=== PATIENT | male | born 1980 | race Caucasian/White ===

== ENCOUNTER 2017-02-23 18:44 | Emergency (ER) | payer SELFPAY ==
[~2017-02-23] VITALS: Ht 170.2 cm; Wt 113.6 kg
[~2017-02-23 18:44] MED LIST: ACETAMINOPHEN-O1 TAB PO; AMBIEN10 MG PO; AMERINET CHO25 MG/ML PO; MEDI-FIRST ASP325 MG PO; PENICILLIN-VK500 MG PO; PEPCID40 M1 PO; PERCOCET 325 MG1 TA2 PO; PRADAXA75 MG PO; SOTALOL HYDROC120 MG PO
[2017-02-23] MEDS ORDERED: AZITHROMYCIN 250MG PO (21:57)
[2017-02-23 23:35] VITALS: BP 120/84
== END 2017-02-23 23:35 | disposition home or self-care (01) ==
LOC: ED 18:44
DX: J18.9 Pneumonia, unspecified organism (principal); F17.210 Nicotine dependence, cigarettes, uncomplicated; K76.0 Fatty (change of) liver, not elsewhere classified
CPT/HCPCS: J1885; J7030; Q9967

== ENCOUNTER → 2019-07-18 | Outpatient (CLI) | payer SELFPAY ==
[~2019-07-18] MED LIST changes: +AZITHROMYCIN 250MG PO
[2019-07-18 16:08] LABS: EOS # 0.1 (0.04-0.40); EOS % 1.8 % (0.0-4.0); HEMATOCRIT 41.8 % (42.0-52.0); HEMOGLOBIN 13.6 g/dL (13.5-18.0); MEAN CELL VOLUME 93 fl (78-100); MEAN CORPUSCULAR HEMOGLOBIN 30 pg (27-31); MEAN CORPUSCULAR HGB CONC 33 g/dL (33-37); MEAN PLATELET VOLUME 9.8 fl (7.4-10.4); MONO # 0.6 (0.20-0.80); NEU # 3.7 (1.40-6.50); PLATELET COUNT 285 K/mm3 (130-400); RED BLOOD COUNT 4.49 M/mm3 (4.20-5.60); RED CELL DISTRIBUTION WIDTH 13.7 % (11.5-14.5); WHITE BLOOD COUNT 5.1 K/mm3 (4.8-10.8)
[2019-07-18 16:10] LABS: LYMPH# 0.7 (1.50-4.00)
[2019-07-18 16:12] LABS: ALBUMIN 4.3 g/dL (3.5-5.0)
[2019-07-18 16:13] LABS: CALCIUM 9.7 mg/dL (8.3-10.5)
[2019-07-18 16:14] LABS: TOTAL PROTEIN 7.8 g/dL (6.4-8.3)
[2019-07-18 16:16] LABS: TOTAL BILIRUBIN 0.3 mg/dL (0.2-1.2)
[2019-07-18 17:08] LABS: ERYTHROCYTE SEDIMENTATION RATE 11 mm/hr (0-15)
== END ==
LOC: LAB 15:46
PROVIDERS: Internal Medicine
DX: Z00.00 Encounter for general adult medical examination without abnormal findings (principal); Z12.5 Encounter for screening for malignant neoplasm of prostate

== ENCOUNTER → 2020-12-10 | Outpatient (CLI) | payer SELFPAY ==
[2020-12-10 16:39] LABS: HEMATOCRIT 42.7 % (42.0-52.0); HEMOGLOBIN 13.9 g/dL (13.5-18.0); MEAN CELL VOLUME 99 fl (78-100); MEAN CORPUSCULAR HEMOGLOBIN 32 pg (27-31); MEAN CORPUSCULAR HGB CONC 33 g/dL (33-37); MEAN PLATELET VOLUME 8.7 fl (7.4-10.4); PLATELET COUNT 247 K/mm3 (130-400); RED BLOOD COUNT 4.33 M/mm3 (4.20-5.60); RED CELL DISTRIBUTION WIDTH 11.9 % (11.5-14.5)
[2020-12-10 16:59] LABS: ALBUMIN 3.9 g/dL (3.5-5.0); POTASSIUM 4.7 mmol/L (3.5-5.1)
[2020-12-10 17:00] LABS: CALCIUM 8.7 mg/dL (8.3-10.5)
[2020-12-10 17:02] LABS: TOTAL PROTEIN 7.3 g/dL (6.4-8.3)
[2020-12-10 17:03] LABS: TOTAL BILIRUBIN 0.2 mg/dL (0.2-1.2)
[2020-12-10 19:14] LABS: ERYTHROCYTE SEDIMENTATION RATE 22 mm/hr (0-15); LYMPHOCYTE 21 % (20-51); MONOCYTE 13 % (3-10); NEUTROPHILS 65 % (42-75); TEAR DROP CELLS 2+
== END ==
LOC: RAD 16:24
PROVIDERS: Internal Medicine
DX: R10.84 Generalized abdominal pain (principal); R06.00 Dyspnea, unspecified

== ENCOUNTER → 2020-12-17 | Outpatient (CLI) | payer SELFPAY | LOC: RAD 09:49 | DX: Z98.84 Bariatric surgery status (principal); Z90.49 Acquired absence of other specified parts of digestive tract; R10.84 Generalized abdominal pain; Z96.89 Presence of other specified functional implants | CPT/HCPCS: Q9967 ==

== ENCOUNTER → 2021-05-06 | Outpatient (CLI) | payer SELFPAY | LOC: VAS 12:48 → RAD 13:00 | DX: R06.00 Dyspnea, unspecified (principal) ==